=== PATIENT | female | born 2000 | race Caucasian/White ===

== ENCOUNTER 2020-08-25 20:46 | Emergency (ER) | payer BC ==
[2020-08-25] MEDS ORDERED: Acetaminophen 500 MG TAB ONE (21:13)
== END 2020-08-25 22:06 | disposition home or self-care (01) ==
LOC: MADERS 20:46
DX: O9A.212 Injury, poisoning and certain other consequences of external causes complicating pregnancy, second trimester (principal); S93.402A Sprain of unspecified ligament of left ankle, initial encounter; O99.512 Diseases of the respiratory system complicating pregnancy, second trimester; J45.909 Unspecified asthma, uncomplicated; Z79.899 Other long term (current) drug therapy; W55.19XA Other contact with horse, initial encounter